=== PATIENT | female | born 1960 | race Hispanic/Latino ===

== ENCOUNTER 2020-04-23 12:58 | Outpatient (CLI) | payer OTHER ==
--- NOTE | 2020-04-23 14:26 | Ultrasound Report ---
ULTRASOUND BREAST LEFT LIMITED, 04/23/2020 CLINICAL INFORMATION / INDICATION: ABNORMAL MAMMO. Patient presents for further evaluation of an area of palpable concern in the left breast with associated architectural distortion seen on recent mammo gram. TECHNIQUE: Targeted ultrasound evaluation was performed of the area of interest. COMPARISON: Prior mammogram 04/03/2020 FINDINGS: Corresponding with the site of palpable concern in the left breast 11:00 position located 8 cm from t he nipple, there is an irregular hypoechoic mass with associated shadowing measuring up to 1.7 x 1.1 x 0.8 cm. The mass is taller than it is wide. A focus of peripheral vascularity is demonstrated. Targ eted ultrasound of the left axilla is unremarkable without evidence for pathologically enlarged lymph nodes. IMPRESSION: 1. An irregular hypoechoic mass accounts for the area of palpable concern in the left breast. This is highly suggestive of malignancy, ultrasound-guided biopsy is recommended. Follow up recommendation: Biopsy BI-RADS Category 5: Highly Suggestive of Malignancy. A normal or "negative" report should not preclude biopsy or follow-up of a clinically suspicious find ing. Signer Name: Bren Garner MD Signed: 04/23/2020 2:21 PM Workstation Name: [email or web address]
== END 2020-04-23 12:59 | disposition home or self-care (01) ==
LOC: SPVWC 12:58
PROVIDERS: ATTEND Surgery
DX: R92.8 Other abnormal and inconclusive findings on diagnostic imaging of breast (principal)

== ENCOUNTER 2020-05-02 10:25 | Outpatient (CLI) | payer OTHER ==
--- NOTE | 2020-05-02 13:11 | Mammography Report ---
ULTRASOUND GUIDED LEFT BREAST BIOPSY, 05/02/2020 POSTPROCEDURE LEFT BREAST DIAGNOSTIC MAMMOGRAM CLINICAL INFORMATION / INDICATION: POST US BX. COMPARISON: Left breast ultrasound from 04/23/2028 and diagnostic mammogram from 04/03/2020 PROCEDURE: Risks, benefits, and indications to the procedure were discussed with the patient in detail, includin g bleeding, infection, hematoma formation, and inadequate tissue sampling. The patient agreed to proc eed with both verbal and written consent. A timeout procedure was performed with two patient identifi ers. The breast was prepped and draped in the usual sterile fashion. Lidocaine 1% was used for local anest hesia. Under direct ultrasound guidance, 5 separate 14-gauge core samples were obtained of the left b reast nodule. A biopsy marker was then placed. Biopsy device was removed and hemostasis achieved wit h manual pressure. A sterile dressing was applied to the skin. The patient tolerated the procedure without difficulty. No complications were encountered. Postbiopsy instructions were discussed with the patient and given in writing. Specimens were sent to pathology. IMPRESSION: 1. Technically successful ultrasound guided left breast biopsy. 2. Postprocedure left-sided mammogram shows satisfactory clip placement. Biopsy results are pending and will be reported in an addendum. Signer Name: Aryan Isidro MD Signed: 05/02/2020 1:06 PM Workstation Name: [id number]
--- NOTE | 2020-05-02 13:17 | Ultrasound Report ---
ULTRASOUND GUIDED LEFT BREAST BIOPSY, 05/02/2020 POSTPROCEDURE LEFT BREAST DIAGNOSTIC MAMMOGRAM CLINICAL INFORMATION / INDICATION: R92.8. COMPARISON: Left breast ultrasound from 04/23/2028 and diagnostic mammogram from 04/03/2020 PROCEDURE: Risks, benefits, and indications to the procedure were discussed with the patient in detail, includin g bleeding, infection, hematoma formation, and inadequate tissue sampling. The patient agreed to proc eed with both verbal and written consent. A timeout procedure was performed with two patient identifi ers. The breast was prepped and draped in the usual sterile fashion. Lidocaine 1% was used for local anest hesia. Under direct ultrasound guidance, 5 separate 14-gauge core samples were obtained of the left b reast nodule. A biopsy marker was then placed. Biopsy device was removed and hemostasis achieved wit h manual pressure. A sterile dressing was applied to the skin. The patient tolerated the procedure without difficulty. No complications were encountered. Postbiopsy instructions were discussed with the patient and given in writing. Specimens were sent to pathology. IMPRESSION: 1. Technically successful ultrasound guided left breast biopsy. 2. Postprocedure left-sided mammogram shows satisfactory clip placement. Biopsy results are pending and will be reported in an addendum. Signer Name: Aryan Isidro MD Signed: 05/02/2020 1:13 PM Workstation Name: [id number]
== END 2020-05-02 10:26 | disposition home or self-care (01) ==
LOC: US 10:25
PROVIDERS: ATTEND Surgery
DX: N63.22 Unspecified lump in the left breast, upper inner quadrant (principal); R92.8 Other abnormal and inconclusive findings on diagnostic imaging of breast; N64.89 Other specified disorders of breast; C50.212 Malignant neoplasm of upper-inner quadrant of left female breast; Z17.0 Estrogen receptor positive status [ER+]
CPT/HCPCS: 88305; 88341; 88342

== ENCOUNTER 2020-08-07 05:53 | Day surgery (SDC) | payer OTHER ==
[2020-08-07] MEDS ORDERED: VANCOMYCIN/NS 1 GM/250 ML 1 GM/250 ML BAG IV NR (06:00)
[2020-08-07] MEDS ORDERED: VANCOMYCIN 2,000 MG in SODIUM CHLORIDE 0.9% 500 ML 500 ML IV ONE (06:30)
--- NOTE | 2020-08-07 07:07 | Anesthesia Consultation ---
Anesthesia Consult and Med Hx Date of service: 08/07/20 - Airway Anesthetic Teeth Evaluation: Good, Caps, Crowns ROM Head & Neck: Adequate Mental/Hyoid Distance: Adequate Mallampati Class: Class II Intubation Access Assessment: Good - Pulmonary Exam CTA: Yes - Cardiac Exam Cardiac Exam: RRR - Pre-Operative Health Status ASA Pre-Surgery Classification: ASA2 Proposed Anesthetic Plan: General Nerve Block: ERB Post-op pain control - Cardiovascular System Hx Heart Murmur: Yes - Central Nervous System Hx Psychiatric Problems: No - Other Systems Hx Cancer: Yes Hx Obesity: Yes
[2020-08-07] MEDS ORDERED: fentaNYL 100 MCG/2 ML INJ IV NR (07:08)
--- NOTE | 2020-08-07 07:08 | Anesthesia Day of Surgery ---
Anesthesia Day of Surgery - Day of Surgery Patient Examined: Yes Patient H&P Reviewed: Yes Patient is NPO: Yes
[2020-08-07] MEDS ORDERED: ACETAMINOPHEN 500 MG TAB PO NR (07:11)
[2020-08-07] MEDS ORDERED: LIDOCAINE (1%) 10 MG/1 ML VIAL 20 ML MDV INFILTRATI NR (07:15)
[2020-08-07] MEDS ORDERED: METHYLENE BLUE 50 MG/10 ML AMP ONE (07:25)
[2020-08-07] MEDS ORDERED: SODIUM CHLORIDE P/F VIAL 10 ML 10 ML ONE ×2 (07:25→12:06)
[2020-08-07] MEDS ORDERED: ePHEDrine SULFATE 50 MG/1 ML INJ ONE (07:34)
[2020-08-07] MEDS ORDERED: propofoL 200 MG/20 ML VIAL IV ONE (07:37)
[2020-08-07] MEDS ORDERED: dexAMETHasone 20 MG/5 ML VIAL ONE (07:37)
[2020-08-07] MEDS ORDERED: PHENYLEPHRINE/NS 1,000 MCG/10 ML SYRINGE (OR USE) IV ONE (07:37)
[2020-08-07] MEDS ORDERED: LIDOCAINE MPF (2%) 20 MG/1 ML VIAL 5 ML ONE (07:37)
[2020-08-07] MEDS ORDERED: fentaNYL 100 MCG/2 ML INJ ONE (07:37)
[2020-08-07] MEDS ORDERED: ONDANSETRON 4 MG/2 ML INJ ONE (07:37)
[2020-08-07] MEDS ORDERED: ROCURONIUM 50 MG/5 ML INJ IV ONE (07:37)
[2020-08-07] MEDS ORDERED: SUCCINYLCHOLINE CHLORIDE 200 MG/10 ML INJ MDV ONE (07:37)
[2020-08-07] MEDS ORDERED: GLYCOPYRROLATE 0.4 MG/2 ML INJ ONE (07:37)
[2020-08-07] MEDS ORDERED: NEOSTIGMINE 10MG/10 ML INJ MDV ONE (07:37)
[2020-08-07] MEDS ORDERED: CELECOXIB 200 MG CAP PO NR (08:00)
[2020-08-07] MEDS ORDERED: SCOPOLAMINE TRANSDERMAL PATCH 72 HR TD NR (08:00)
[2020-08-07] MEDS ORDERED: MIDAZOLAM 2 MG/2 ML INJ IV NR (08:00)
[2020-08-07] MEDS ORDERED: BUPIVACAINE/PF (0.5%) 5 MG/1 ML 10 ML VIAL INFILTRATI NR (08:00)
[2020-08-07] MEDS ORDERED: ONDANSETRON 4 MG/2 ML INJ IV PRN (08:04)
[2020-08-07] MEDS ORDERED: HYDROmorphone 1 MG/1 ML INJ IV PRN ×2 (08:04)
[2020-08-07] MEDS ORDERED: BUPIVACAINE/PF (0.25%) 2.5 MG/ML 30 ML VIAL INFILTRATI ONE (08:27)
[2020-08-07] MEDS ORDERED: BUPIVACAINE-EPINEPHRINE/PF 0.5%-1:200,000 (10 ML) VIAL INFILTRATI ONE (08:33)
[2020-08-07] MEDS ORDERED: dexAMETHasone 4 MG/ML VIAL ONE (08:34)
[2020-08-07] MEDS: LACTATED RINGERS 1,000 ML IV SCH ×2 (08:35→13:29)
--- NOTE | 2020-08-07 08:59 | Mammography Report ---
MAMMOGRAPHIC GUIDED LEFT BREAST NEEDLE LOCALIZATION, 08/07/2020 CLINICAL INFORMATION / INDICATION: LT BREAST MASS. Patient with 2 separate clips in the left breast, here for bracketed localization COMPARISON: Mammogram and MRI from 07/03/2020 PROCEDURE: Risks, benefits and indications to the procedure were discussed with the patient. The patient agreed to proceed with both verbal and written consent. A timeout procedure was performed with 2 patient antionette ntifiers. The breast was prepped with Chlorhexidine 1% in the usual sterile fashion. Approximately 6 cc of Lido pastora 1% was used for local anesthesia. Under direct digital mammographic guidance, 2 separate locali zation wires were placed in satisfactory position with distal tips traversing the targeted clips. Pos t-biopsy mammogram confirms satisfactory positioning of the localization wires. The wires were secure d to the skin with a sterile dressing. The patient tolerated procedure without difficulty. No complications were encountered. IMPRESSION: 1. Satisfactory mammographic guided bracketed wire localization of the left breast. Signer Name: Aryan Isidro MD Signed: 08/07/2020 8:55 AM Workstation Name: [id number]
[2020-08-07] MEDS ORDERED: SODIUM CHLORIDE 0.9% P/F 10 ML VIAL INFILTRATI ONE (09:28)
[2020-08-07] MEDS ORDERED: METHYLENE BLUE 50 MG/10 ML AMP IRRIGATION ONE (09:28)
[2020-08-07] MEDS ORDERED: WATER FOR IRRIG STERILE 1,500 ML BOTTLE IR ONE (10:01)
[2020-08-07] MEDS ORDERED: BACITRACIN ZINC OINT 28.4 GM TP ONE ×2 (11:36→12:28)
[2020-08-07] MEDS ORDERED: BACITRACIN 50,000 UNIT VIAL ONE (12:06)
[2020-08-07] MEDS ORDERED: BACITRACIN 50,000 UNIT VIAL IR ONE (12:16)
[2020-08-07] MEDS ORDERED: HYDROmorphone 1 MG/1 ML INJ ONE (12:58)
--- NOTE | 2020-08-07 13:13 | Operative Report ---
Operative Report Operative Report: Operative Report: August 07, 2020 Preoperative diagnosis: Multifocal left breast cancer of the upper outer and upper inner quadrant Postoperative diagnosis: Same Procedure: Left breast needle localization partial mastectomy of the upper outer and upper inner quadrant with SLNB and placement of BioZorb marker Surgeon: Leyla Agosto MD [place] Artist: Kathleen Villegas MD Anesthesia: General Findings: Left wires and clips present within radiograph specimen; x2 SLNs; placement of BioZorb marker Complications: None EBL: 50 cc Disposition: PACU in good condition Indications for operative procedure: This is a 60 year old lady with newly diagnosed multifocal left breast cancer of the upper outer and upper inner quadrant, ILCA grade 1, Stage I-II T1c/2N0M0 ER positive (11:00 position 8 cm FN; MRI with abnormal enhancement from 11-1:00 position of 5 cm). Patient wised to proceed with breast conservation. Radiology to place bracketed wires at location of known areas of cancer. She understands the role of adjuvant radiation therapy and Oncotype DX will be obtained by medical oncology. Patient also understood if margins were positive or close, additional surgery would be indicated. She wished to proceed with the above procedure. Procedure in detail: The patient was taken to radiology for wire placement for localization known area of cancer. Anesthesia placed left pectoral block. Patient was then taken to the operating room. Gen. anesthesia was administered. The left nipple was injected with radioisotope and 1 cc of methylene blue. Left breast and axilla were prepped and draped in the normal sterile operative fashion. The wires were identified. Timeout was performed. Gamma probe was inserted into the axilla. The area of hot spot was identified. A left axillary incision was made with a 15 blade knife with dissection taken down to the subcutaneous tissues. The axillary fascia was opened with the Bovie cautery. 2 SLNs were identified and dissected free. All remaining counts were less than 10% of the highest count. Lymph node were sent to pathology for permanent processing. Hemostasis was obtained in the left axillary cavity. Axillary cavity was appropriately irrigated and suctioned. Hemostasis was noted. Axillary fascia was approximated and closed using interrupted 3-0 Vicryl and the skin brought together and closed using a running 4-0 Monocryl followed by skin affix. Attention was then taken towards the left breast. Ultrasound used as well to identify the known areas of cancer. A breast incision was made around 1:00 position was made with a 15 blade knife and dissection taken down to subcutaneous tissues. First began raising of the superior flap with removal of the wire from the skin with dissection taken superior and past the area of known malignancy and wires and then taken down to the pectoralis muscle, followed by raising of the inferior flap, medial flap and lateral flap with all flaps taken past the area of known malignancy and wires and then posteriorly down to the pectoralis muscle. The breast area of concern was appropriately removed posteriorly from the pectoralis muscle with the aid of the Bovie cautery. The wires were not encountered. Specimen was marked and then sent to pathology and radiology; radiograph specimen with wires and clips present. Breast cavity was irrigated and hemostasis was obtained. Then proceeded with placement of BioZorb marker [id number] with complex closure. The posterior deep breast tissues were then mobilized to approximate and cover the area of the defect of at least 8-9 cm; appropriate margins of at least 3-4 cm were marked at incision. The posterior deep breast tissues were approximated and closed using interrupted 3-0 Vicryl. The BioZorb of 3x4 centimeters was then sutured into place using interrupted 2-0 PDS, placing 4 sutures. Anterior breast tissue were then approximated and closed using interrupted 3-0 Vicryl, thus covering the biozorb. The BioZorb was not easily palpable. The subcutaneous tissues were then approximated and closed using interrupted 3-0 Vicryl followed by closing of the skin with a running 4-0 Monocryl and skin affix. The patient tolerated surgery very well and she was awaken from anesthesia without any complication and transported to PACU in good condition.
--- NOTE | 2020-08-07 13:18 | Short Stay Summary ---
Short Stay Documentation Date of service: 08/07/20 - History H&P: obtained from office - Allergies and Medications Current Medications: Allergies Penicillins Allergy (Verified 07/26/20 14:50) Hives Home Medications Medication Instructions Recorded Confirmed Last Taken Type Ergocalciferol [Vitamin D2] 1 cap PO QWEEK 07/26/20 08/07/20 08/03/20 08:00 History oxyCODONE /ACETAMINOPHEN [Percocet 1 tab PO Q6HR PRN #15 tablet 08/07/20 Unknown Rx 5/325] Active Medications Acetaminophen (Acetaminophen 500 Mg Tab) 1,000 mg PO ONCE NR Stop: 08/07/20 18:00 Last Admin: 08/07/20 08:35 Dose: 500 mg Documented by: Bupivacaine HCl (Bupivacaine/Pf (0.5%) 5 Mg/1 Ml 10 Ml Vial) 20 ml INFILTRATI PREOP NR Stop: 08/07/20 23:00 Celecoxib (Celecoxib 200 Mg Cap) 200 mg PO PREOP NR Stop: 08/07/20 23:00 Last Admin: 08/07/20 08:35 Dose: 200 mg Documented by: Fentanyl (Fentanyl 100 Mcg/2 Ml Inj) 100 mcg IV ONCE NR Stop: 08/07/20 18:00 Hydromorphone HCl (Hydromorphone 1 Mg/1 Ml Inj) 0.25 mg IV Q10MIN PRN PRN Reason: Pain, Moderate (4-6) Stop: 08/07/20 23:00 Hydromorphone HCl (Hydromorphone 1 Mg/1 Ml Inj) 0.5 mg IV Q10MIN PRN PRN Reason: Pain , Severe (7-10) Stop: 08/07/20 23:00 Vancomycin HCl (Vancomycin/Ns 1 Gm/250 Ml) 1 gm in 250 mls @ 166.667 mls/hr IV PREOP NR; Protocol Stop: 08/07/20 23:00 Lactated Ringer's (Lactated Ringers) 1,000 mls @ 125 mls/hr IV DIRECT VILMA Lidocaine (Lidocaine (1%) 10 Mg/1 Ml Vial 20 Ml Mdv) 10 ml INFILTRATI PREOP NR Stop: 08/07/20 23:00 Midazolam HCl (Midazolam 2 Mg/2 Ml Inj) 2 mg IV PREOP NR Stop: 08/07/20 23:59 Ondansetron HCl (Ondansetron 4 Mg/2 Ml Inj) 4 mg IV ONCE PRN PRN Reason: Nausea And Vomiting Stop: 08/07/20 23:00 Scopolamine (Scopolamine Transdermal Patch 72 Hr) 1 each TD PREOP NR Stop: 08/07/20 23:00 Last Admin: 08/07/20 08:35 Dose: 1 each Documented by: - Brief post op/procedure progress note Date of procedure: 08/07/20 Pre-op diagnosis: Left breast cancer UIQ and UOQ Post-op diagnosis: same Procedure: Left partial mastectomy with SLNB and biozorb placement Anesthesia: GETA Findings: left wires and clip present; x2 slns Surgeon: MAYANK HOWARD Estimated blood loss: other (50 cc) Pathology: list Specimen disposition: to lab Condition: stable - Disposition Condition at discharge: Good Disposition: DC-01 TO HOME OR SELFCARE Short Stay Discharge Plan Activity: other (no heavy lifting) Diet: regular Wound: keep clean and dry (wear breast binder; may shower in 48 hours; no baths) Follow up with: MAYANK HOWARD MD [Staff Physician] - 7 Days Prescriptions: oxyCODONE /ACETAMINOPHEN [Percocet 5/325] 1 tab PO Q6HR PRN #15 tablet PRN Reason: Pain
[2020-08-07] MEDS ORDERED: diphenhydrAMINE 50 MG/ML VIAL ONE (13:46)
[2020-08-07] MEDS ORDERED: diphenhydrAMINE 50 MG/ML VIAL IV ONE (13:46)
--- NOTE | 2020-08-07 13:58 | Post Anesthesia Evaluation ---
- Post Anesthesia Evaluation Patient Participated: Yes Airway Patent: Yes Stable Respiratory Function: Yes Nausea/Vomiting: Yes Temp > 96.8F: Yes Pain Manageable: Yes Adequeate Hydration: Yes Anesthesia Complications: No Block Receding Appropriately: Yes Patient on Ventilator: No
--- NOTE | 2020-08-07 14:01 | Mammography Report ---
Left breast surgical specimen INDICATION: Left breast wire localization.. COMPARISON: 05/02/2020. FINDINGS: Single specimen radiograph of the left breast was obtained. This demonstrates two biopsy ma rkers (cylinder and U-shaped) within the specimen. The U-shaped biopsy marker represents the site of left breast 11:00 biopsy which was performed here and revealed invasive lobular carcinoma. The cylind rical biopsy marker was placed at an outside facility IMPRESSION: Single left breast surgical specimen containing two biopsy markers (cylinder and U-shaped). Signer Name: Jose Qiu MD Signed: 08/07/2020 1:56 PM Workstation Name: [id number]
[2020-08-07 16:02] VITALS: BP 117/67
== END 2020-08-07 15:30 | disposition home or self-care (01) ==
LOC: OR 05:53
PROVIDERS: ATTEND Surgery
DX: C50.412 Malignant neoplasm of upper-outer quadrant of left female breast (principal); C50.212 Malignant neoplasm of upper-inner quadrant of left female breast; I89.8 Other specified noninfective disorders of lymphatic vessels and lymph nodes; Z20.822 Contact with and (suspected) exposure to COVID-19; E66.9 Obesity, unspecified; M19.90 Unspecified osteoarthritis, unspecified site; Z88.0 Allergy status to penicillin; Z79.899 Other long term (current) drug therapy; Z98.890 Other specified postprocedural states; Z68.43 Body mass index [BMI] 50.0-59.9, adult
CPT/HCPCS: 19281; 19294; 19301; 38525; 38792; 76098; 78801; 88307; 88342; A4648; A9541; J0330; J1100; J1170; J1200; J2250; J2370; J2405; J2704; J2710; J3010; J3370; J7040; J7120; Q9968; U0003; 64450